=== PATIENT | male | born 1955 | race Caucasian/White ===

== ENCOUNTER 2023-08-22 13:51 | Emergency (ER) | payer MEDICARE, OTHER ==
[2023-08-22 14:24] LABS: #Basophils Less than 0.03 10x3/uL (0.0-0.2); %Basophils 0.1 % (0.0-1.0); %Eosinophils 5.5 % (0.0-10.0); %Lymphocytes 2.5 % (21.0-51.0); %Monocytes 13.7 % (0.0-10.0); %Neutrophils 77.5 % (42.0-75.0); Hematocrit 38.2 % (42.0-52.0); Hemoglobin 13.3 g/dL (14.0-18.0); Mean Corpuscular HGB CONC 34.8 g/dL (32.0-36.0); Mean Corpuscular Hemoglobin 30.5 pg (27.0-31.0); Mean Corpuscular Volume 87.6 fL (78.0-98.0); Mean Platelet Volume 8.9 fL (7.4-10.4); Platelet Count 273 10x3/uL (130-400); RBC Distribution Width 12.5 % (11.5-14.5); Red Blood Cell (RBC) Count 4.36 mill/uL (4.70-6.10)
[2023-08-22 14:43] LABS: ALT (SGPT) 18 U/L (8-55); AST (SGOT) 19 U/L (5-34); Albumin 3.4 g/dL (3.4-4.8); Alkaline Phosphatase 87 U/L (40-110); Anion Gap 15 mmol/L (10-20); BUN (Urea Nitrogen) 15 mg/dL (8.4-25.7); Bilirubin, Total 0.4 mg/dL (0.2-1.2); Calc. Creatinine Clearance 0 mL/min (70-130); Calcium 9.3 mg/dL (7.8-10.44); Carbon Dioxide 19 mmol/L (23-31); Chloride 102 mmol/L (98-107); Estimated GFR 62; Globulin 4.2 g/dL (2.4-3.5); Glucose 106 mg/dL (80-115); Magnesium 2.1 mg/dL (1.6-2.6); Potassium 4.4 mmol/L (3.5-5.1); Protein, Total 7.6 g/dL (5.8-8.1); Sodium 132 mmol/L (136-145)
[2023-08-22 14:49] LABS: Troponin I Less than 0.010 ng/mL (< 0.028)
[2023-08-22] MEDS ORDERED: Acetaminophen 325 MG TAB ONE (15:30)
== END 2023-08-22 17:00 | disposition home or self-care (01) ==
LOC: ERS 13:51
DX: R07.9 Chest pain, unspecified (principal); M79.10 Myalgia, unspecified site
CPT/HCPCS: 71275; 80053; 83735; 83880; 84484; 85025; 87804; 93005

== ENCOUNTER 2023-08-23 21:31 | Emergency (ER) | payer MEDICARE, OTHER ==
[2023-08-23] MEDS ORDERED: Famotidine 20 MG TAB ONE (23:12)
[2023-08-23] MEDS ORDERED: diphenhydrAMINE 50 MG/ML VIAL ONE (23:12)
[2023-08-23] MEDS ORDERED: methylPREDNISolone Sod Succ/PF 125 MG/2 ML VIAL ONE (23:13)
[2023-08-23] MEDS ORDERED: diphenhydrAMINE 25 MG CAP ONE (23:13)
== END 2023-08-24 00:26 | disposition home or self-care (01) ==
LOC: ERS 21:31
DX: R21 Rash and other nonspecific skin eruption (principal)
CPT/HCPCS: 96372; 99282; J1200; J2930

== ENCOUNTER 2024-05-13 10:14 | Outpatient (CLI) | payer MEDICARE, OTHER ==
[2024-05-13] MEDS ORDERED: GASTROGRAFIN 30 ML BOT ONE (10:57)
[2024-05-13] MEDS ORDERED: Iopamidol 370 76% 100 ML VIAL ONE (10:57)
== END 2024-05-13 10:15 | disposition home or self-care (01) ==
LOC: CT 10:14
PROVIDERS: ATTEND Family Medicine
DX: R10.9 Unspecified abdominal pain (principal); R91.1 Solitary pulmonary nodule; K57.30 Diverticulosis of large intestine without perforation or abscess without bleeding
CPT/HCPCS: 36415; 74177; 82565

== ENCOUNTER 2024-11-19 12:25 | Outpatient (CLI) | payer MEDICARE, OTHER ==
[2024-11-19 13:07] LABS: Estimated GFR - POC 82.0
== END 2024-11-19 12:26 | disposition home or self-care (01) ==
LOC: SCSMRI 12:25
DX: C01 Malignant neoplasm of base of tongue (principal); J38.7 Other diseases of larynx
CPT/HCPCS: 36415; 70543; 82565

== ENCOUNTER 2024-11-23 09:29 | Outpatient (CLI) | payer MEDICARE, OTHER | END 2024-11-23 09:30 | disposition home or self-care (01) | LOC: RAD 09:29 | PROVIDERS: ATTEND Radiology Radiation Oncology | DX: R13.19 Other dysphagia (principal) | CPT/HCPCS: 74230 ==

== ENCOUNTER 2025-01-09 03:18 | Inpatient (IN) | payer MEDICARE, OTHER ==
[2025-01-09] MEDS ORDERED: Ondansetron PF 4 MG/2 ML Vial ONE (04:33)
[2025-01-09 05:12] LABS: #Basophils Less than 0.03 10x3/uL (0.0-0.2); #Eosinophils Less than 0.03 10x3/uL (0.0-0.7); #Monocytes 0.22 10x3/uL (0.11-0.59); #Neutrophils 0.60 10x3/uL (1.40-6.50); %Basophils 0.0 % (0.0-1.0); %Eosinophils 1.1 % (0.0-10.0); %Lymphocytes 6.7 % (21.0-51.0); %Monocytes 24.7 % (0.0-10.0); %Neutrophils 67.5 % (42.0-75.0); Hematocrit 48.5 % (42.0-52.0); Hemoglobin 16.6 g/dL (14.0-18.0); Mean Corpuscular Hemoglobin 30.9 pg (27.0-31.0); Mean Corpuscular Volume 90.1 fL (78.0-98.0); Platelet Count 103 10x3/uL (130-400); Red Blood Cell (RBC) Count 5.38 mill/uL (4.70-6.10); Reflex for Review?? YES; White Blood Cell (WBC) Count 0.89 10x3/uL (4.8-10.8)
[2025-01-09 05:22] LABS: ALT (SGPT) 33 U/L (Less than 45); AST (SGOT) 27 U/L (11-34); Albumin 3.5 g/dL (3.1-4.5); Alkaline Phosphatase 58 U/L (40-110); Anion Gap 18 mmol/L (10-20); BUN (Urea Nitrogen) 11 mg/dL (8.4-25.7); Bilirubin, Total 0.5 mg/dL (0.3-1.2); Calc. Creatinine Clearance 0 mL/min (70-130); Calcium 8.9 mg/dL (7.8-10.44); Carbon Dioxide 24 mmol/L (23-31); Chloride 99 mmol/L (98-107); Globulin 3.1 g/dL (2.4-3.5); Glucose 88 mg/dL (80-115); Lipase 22 U/L (8-78); Magnesium 1.7 mg/dL (1.6-2.6); Potassium 3.7 mmol/L (3.5-5.1); Sodium 137 mmol/L (136-145)
[2025-01-09 05:54] LABS: Bacteria/HPF None Seen HPF (None Seen); CAUTI Indications for Culture Immunosuppressed; Glucose, Urine (Dipstick) Normal (Negative); Leukocyte 250 Leu/uL (Negative); Protein, Urine (Dipstick) Negative (Neg-Trace); RBC/HPF 0-3 HPF (0-3); Specific Gravity, Urine 1.012 (1.002-1.036); WBC/HPF Greater than 50 HPF (0-3)
[2025-01-09 06:00] LABS: Platelet Adequacy Comment Platelets Decreased; RBC Morphology Within Normal Limits
[2025-01-09 06:21] LABS: Urine Culture Reflex Yes Yes
[2025-01-09] MEDS ORDERED: Droperidol 5 MG/2 ML VIAL ONE (07:21)
[2025-01-09] MEDS ORDERED: cefTRIAXone (ROCEPHIN) 1 GM VIAL ONE (07:21)
[2025-01-09 09:48] VITALS: BMI 32.8
[2025-01-09] MEDS ORDERED: Acetaminophen 500 MG TAB PO PRN (10:46)
[2025-01-09] MEDS: Ondansetron PF 4 MG/2 ML Vial IVP PRN (13:33)
[2025-01-09] MEDS: Colchicine 0.3 MG TAB PO SCH (13:38)
[2025-01-09] MEDS: Allopurinol 100 MG TAB PO SCH (13:38)
[2025-01-09] MEDS: Famotidine 20 MG TAB PO SCH ×2 (13:39→19:43)
[2025-01-09] MEDS: PNEUMOC 20-VAL CONJ-DIP CRM/PF 0.5 ML SYRINGE IM ONE (13:40)
[2025-01-10 06:25] LABS: Anion Gap 14 mmol/L (10-20); BUN (Urea Nitrogen) 10 mg/dL (8.4-25.7); Calc. Creatinine Clearance 155 mL/min (70-130); Calcium 8.2 mg/dL (7.8-10.44); Carbon Dioxide 22 mmol/L (23-31); Chloride 102 mmol/L (98-107); Glucose 83 mg/dL (80-115); Potassium 3.5 mmol/L (3.5-5.1); Sodium 134 mmol/L (136-145)
[2025-01-10 07:08] LABS: Hematocrit 28.9 % (42.0-52.0); Hemoglobin 9.7 g/dL (14.0-18.0); Mean Corpuscular Hemoglobin 30.8 pg (27.0-31.0); Mean Corpuscular Volume 91.7 fL (78.0-98.0); Platelet Count 146 10x3/uL (130-400); Red Blood Cell (RBC) Count 3.15 mill/uL (4.70-6.10); White Blood Cell (WBC) Count 2.06 10x3/uL (4.8-10.8)
[2025-01-10] MEDS: cefTRIAXone\\ROCEPHIN 1 GM in Sodium Chloride 0.9% 100 ML IVPB SCH (07:50)
[2025-01-10] MEDS: Allopurinol 100 MG TAB PO SCH (07:51)
[2025-01-10] MEDS: Colchicine 0.3 MG TAB PO SCH (07:51)
[2025-01-10 08:05] LABS: Platelet Adequacy Comment Platelets Normal
[2025-01-10] MEDS ORDERED: hydrALAZINE 20 MG/ML VIAL SLOW IVP PRN (11:32)
[2025-01-10 13:13] LABS: Magnesium 1.6 mg/dL (1.6-2.6)
[2025-01-10] MEDS: Prochlorperazine 10 MG/2 ML VIAL SLOW IVP SCH (13:52)
[2025-01-10] MEDS: D5W-AA 4.25% with LYTES 1,000 ML IV SCH (14:56)
[2025-01-10] MEDS: HYDROcodone/Acetaminophen 5/325 mg Tablet PO PRN (17:09)
[2025-01-10] MEDS: Ondansetron PF 4 MG/2 ML Vial IVP SCH (17:10)
[2025-01-10] MEDS: Prochlorperazine 10 MG/2 ML VIAL SLOW IVP PRN (21:32)
[2025-01-11 05:19] LABS: Anion Gap 13 mmol/L (10-20); BUN (Urea Nitrogen) 13 mg/dL (8.4-25.7); Calc. Creatinine Clearance 148 mL/min (70-130); Calcium 8.8 mg/dL (7.8-10.44); Carbon Dioxide 25 mmol/L (23-31); Chloride 101 mmol/L (98-107); Glucose 104 mg/dL (80-115); Potassium 3.8 mmol/L (3.5-5.1); Sodium 135 mmol/L (136-145)
[2025-01-11 05:27] LABS: Hematocrit 28.4 % (42.0-52.0); Hemoglobin 9.6 g/dL (14.0-18.0); Mean Corpuscular Hemoglobin 30.9 pg (27.0-31.0); Mean Corpuscular Volume 91.3 fL (78.0-98.0); Platelet Count 181 10x3/uL (130-400); Red Blood Cell (RBC) Count 3.11 mill/uL (4.70-6.10); White Blood Cell (WBC) Count 1.84 10x3/uL (4.8-10.8)
[2025-01-11 06:17] LABS: Platelet Adequacy Comment Platelets Normal; RBC Morphology Within Normal Limits; Smudge Cells 5.3 %
[2025-01-11] MEDS: Enoxaparin 40 MG (0.4 mL) SYRINGE SC SCH (08:22)
[2025-01-11 12:04] VITALS: BP 163/99; TEMP 98
[2025-01-11] MEDS ORDERED: Mupirocin 1 GM TUBE NASAL DECOLONIZATION NASAL SCH (21:00)
== END 2025-01-11 12:40 | disposition home or self-care (01) | DRG 146 ==
LOC: ERS 03:18 → ERHOLD 08:00 → SURG A 09:38
PROVIDERS: ADMIT Family Medicine; ATTEND Internal Medicine
PROC: 3E0234Z Introduction of Serum, Toxoid and Vaccine into Muscle, Percutaneous Approach (ICD-10-PCS; principal; 2025-01-09)
PROC: 3E03329 Introduction of Other Anti-infective into Peripheral Vein, Percutaneous Approach (ICD-10-PCS; 2025-01-10)
DX: C10.9 Malignant neoplasm of oropharynx, unspecified (principal); D61.811 Other drug-induced pancytopenia; N39.0 Urinary tract infection, site not specified; C02.9 Malignant neoplasm of tongue, unspecified; D70.1 Agranulocytosis secondary to cancer chemotherapy; Z98.890 Other specified postprocedural states; M10.9 Gout, unspecified; K21.9 Gastro-esophageal reflux disease without esophagitis; D69.59 Other secondary thrombocytopenia; Z92.21 Personal history of antineoplastic chemotherapy; R11.2 Nausea with vomiting, unspecified; E86.0 Dehydration; I10 Essential (primary) hypertension; Z88.1 Allergy status to other antibiotic agents; Z88.2 Allergy status to sulfonamides; Z88.8 Allergy status to other drugs, medicaments and biological substances; Z91.048 Other nonmedicinal substance allergy status; Z79.899 Other long term (current) drug therapy; Z51.0 Encounter for antineoplastic radiation therapy; C01 Malignant neoplasm of base of tongue; Z88.0 Allergy status to penicillin; Z91.041 Radiographic dye allergy status
CPT/HCPCS: 36415; 71045; 77336; 77386; 80048; 80053; 81001; 83605; 83690; 83735; 85025; 85060; 87077; 87086; 87186; 93005; 94760; 96361; 96365; 96375; J0696; J0780; J1642; J1650; J1790; J2543; J7030

== ENCOUNTER 2025-03-27 06:24 | Emergency (ER) | payer MEDICARE, OTHER ==
[2025-03-27] MEDS ORDERED: Fluorescein Opthalmic Strip ONE (06:59)
[2025-03-27] MEDS ORDERED: Proparacaine 0.5% Opth 15 ML BOT ONE (06:59)
== END 2025-03-27 07:30 | disposition home or self-care (01) ==
LOC: ERS 06:24
DX: B02.9 Zoster without complications (principal)

== ENCOUNTER 2025-04-14 09:41 | Outpatient (CLI) | payer MEDICARE, OTHER | END 2025-04-14 09:42 | disposition home or self-care (01) | LOC: PET 09:41 | PROVIDERS: ATTEND Radiology Radiation Oncology | DX: C01 Malignant neoplasm of base of tongue (principal) | CPT/HCPCS: 78815; A9552 ==